=== PATIENT | female | born 1975 | race Caucasian/White ===

== ENCOUNTER 2022-03-20 07:55 | Day surgery (SDC) | payer OTHER ==
[~2022-03-20] VITALS: Ht 167.6 cm; Wt 72.7 kg
[~2022-03-20 07:55] MED LIST: ADVAIR 100-501 EACH INH; ADVAIR HFA INH; ALBUTEROL SULF8.5 GM INH; AVIANE1 EACH PO; BUDESONIDE EC3 MG PO; CELECOXIB200 MG PO; IBUPROFEN800 MG PO; LEVOTHYROXINE25 MCG PO; OXYCODONE HCL5 MG PO; PAIN RELIEF EX500 MG PO; PERCOCET 5-3251 EACH PO; PERCOCET 7.5-31 EACH PO; PRILOSEC OTC20 MG PO; RANITIDINE HCL150 MG PO; SENNA LAX8.6 MG PO; SUDAFED 12 HOU120 MG PO; VIT C-ROSE HIP500 MG PO; ZINC50 M3 PO; ZYRTEC10 MG PO
[2022-03-20] MEDS ORDERED: ONDANSETRON ODT8 MG PO (12:57)
[2022-03-20] MEDS ORDERED: HYDROCODON-ACE1 EA10 PO (12:57)
[2022-03-20] MEDS ORDERED: IBUPROFEN800 MG PO (12:57)
--- NOTE | 2022-03-28 06:20 | OR ---
[facility] [address], [place] [address] Signed DATE OF OPERATION: 03/20/2022 SURGEON: Hemal Velasco DO PREOPERATIVE DIAGNOSES: 1. Abnormal uterine bleeding. 2. Fibroid uterus. POSTOPERATIVE DIAGNOSES: 1. Abnormal uterine bleeding. 2. Fibroid uterus. 3. Apical relaxation. PROCEDURES PERFORMED: 1. Total laparoscopic hysterectomy. 2. Bilateral salpingectomy. 3. Cystoscopy. PILLOWCASE CLEANER: Trina Beaulieu DO ANESTHESIA: General. ESTIMATED BLOOD LOSS: 20 mL. SPECIMEN: Uterus and cervix with bilateral fallopian tubes. DRAINS: Naranjo to gravity. FINDINGS: Normal external genitalia. Apical prolapse noted onset of procedure with normal-appearing cervix. On laparoscopy, normal upper abdomen status post cholecystectomy. In the pelvis, large multifibroid uterus with normal tubes and ovaries bilaterally. Hemostasis at the end of the procedure with some residual apical relaxation but improved from the beginning of the procedure. Normal bladder with bilateral ureteral jets on cystoscopy. Electronically Signed By: HEMAL VELASCO DO (JD) 03/28/22 0620 PATIENT NAME: LILLY LAST OPERATIVE REPORT DATE OF : 73 REPORT #: [id number] PHYSICIAN: HEMAL VELASCO DO (JD) PCP: VIKRAM MEAD PAC REPORT IS CONFIDENTIAL AND NOT TO BE RELEASED WITHOUT AUTHORIZATION [address] [address] Signed COMPLICATIONS: None. INDICATIONS: Ms. Last is a pleasant 47-year-old female with abnormal bleeding and fibroid uterus. She is a patient of Dr. Serrano and was consented for MAC, consented and scheduled for total laparoscopic hysterectomy, bilateral salpingectomy, cystoscopy. Risks, benefits, and alternatives were discussed in detail with the patient. The patient understands and wished to proceed with the procedure. TECHNIQUE: The patient was taken to the operating room, where time-out was performed to confirm correct patient and correct procedure. General anesthesia was adequately established. The patient was prepped and draped in the dorsal lithotomy position with feet in Yellofin stirrups. ICPs were on and running. The patient received Ancef 2 g preoperatively as well as heparin 5000 units preoperatively. Once general anesthetic was established, the patient was prepped and draped. A Naranjo catheter was inserted. The anterior lip of the cervix was grasped with an Allis clamp and significant apical prolapse was noted with the cervix nearly to the introitus. The cervix was gently dilated using Hegar dilators and a VCare uterine manipulator was placed without difficulty. The surgeon's gloves were changed and attention was turned to the abdomen. Just inferior to the umbilicus, skin was infiltrated with 0.25% Marcaine with epinephrine and prior scar was incised approximately 3 cm in length. The fascia was grasped, elevated, and entered sharply using Metzenbaum scissors. Fascial incision was tagged superiorly and inferiorly using 0 Vicryl and the peritoneum was entered bluntly. An S retractor was placed and a Marly operative port was placed without difficulty and pneumoperitoneum easily established. A 10 mm laparoscope was placed and survey of the abdomen and pelvis was performed demonstrating normal upper abdomen status post cholecystectomy with no abnormal findings. Attention was then turned to the pelvis. Large multifibroid uterus with normal-appearing bilateral tubes and ovaries were identified. An 8 mm expanding port was placed in the right lower quadrant under direct visualization without complication. A 5 mm assist port was placed in left lower quadrant under direct visualization without complication. The left fallopian tube was grasped with atraumatic grasper, elevated and dissected, fulgurated, and divided using the LigaSure device. This was carried across the mesosalpinx and across the fallopian tube to the cornu. The tube was delivered and sent to pathology for further evaluation. The process was repeated on the right without complication. The right utero-ovarian ligament was fulgurated and divided. The left utero-ovarian ligament was fulgurated and divided. The left round ligament was then fulgurated and divided with excellent hemostasis. The leaves of the broad ligament were then opened with the anterior leaf open from the midportion of the round ligament to the angle of the vaginal cup Electronically Signed By: HEMAL OJEDA) DO YANDY 03/28/22 0620 PATIENT NAME: LILLY LAST OPERATIVE REPORT DATE OF : 73 REPORT #: [id number] PHYSICIAN: HEMAL VELASCO DO (JD) PCP: VIKRAM MEAD PAC REPORT IS CONFIDENTIAL AND NOT TO BE RELEASED WITHOUT AUTHORIZATION [address] [address] Signed anteriorly. This dissection was carried across the anterior edge of the vaginal cup. The posterior leaf was dissected from the midportion of the round ligament to the uterosacral ligament across the posterior edge of the vaginal cuff. The process was repeated on the right side without difficulty. The left uterine vessels were identified, fulgurated and divided with excellent hemostasis. The right uterine vessels were also identified, fulgurated and divided with excellent hemostasis. Colpotomy was then performed using Sonicision device and the uterus and cervix delivered gently through the vaginal opening. Pneumoperitoneum was reestablished by placing a wet lap sponge into operative glove and into the vagina. The pelvis was irrigated and found to be hemostatic. Colpotomy was then repaired using 0 Stratafix suture with careful attention to incorporate the uterosacral ligaments, providing the vaginal cuff with apical support. Careful attention was also paid to incorporate the vaginal epithelium with each bite. Improved apical support and excellent hemostasis was appreciated at this portion of the procedure. The pelvis was irrigated and again found to be hemostatic. Attention was then turned to cystoscopy. A 70 degree cystoscope was placed in the urethral meatus and advanced under direct visualization into the bladder after removal of the Naranjo catheter. Normal bladder with bilateral ureteral jets appreciated. Bladder was drained. Naranjo catheter was reinserted and attention was turned back to the abdomen. Pneumoperitoneum was desufflated and trocars were removed. Periumbilical fascia was then reapproximated using 0 Vicryl in a running nonlocked manner with incorporating the stay sutures. Skin was then reapproximated using 4-0 Monocryl in a subcuticular stitch. The patient was then taken to PACU in good and stable condition. Sponge, needle, and instrument count was correct x2 at the end the procedure. Dr. Beaulieu was present and participated in all portions of the procedure. DO FREDY Watson/JACKSON /[id number] cc: Fannie López PA-C Electronically Signed By: HEMAL VELASCO DO (JD) 03/28/22 0620 PATIENT NAME: LILLY LAST OPERATIVE REPORT DATE OF : 73 REPORT #: [id number] PHYSICIAN: HEMAL VELASCO DO (JD) PCP: VIKRAM MEAD PAC REPORT IS CONFIDENTIAL AND NOT TO BE RELEASED WITHOUT AUTHORIZATION [address] [place], [place] [address] Signed Copies: FANNIE LÓPEZ PA-C ~ Electronically Signed By: HEMAL VELASCO DO (JD) 03/28/22 0620 PATIENT NAME: LILLY LAST OPERATIVE REPORT DATE OF : 73 REPORT #: [id number] PHYSICIAN: HEMAL VELASCO DO (JD) PCP: VIKRAM MEAD PAC REPORT IS CONFIDENTIAL AND NOT TO BE RELEASED WITHOUT AUTHORIZATION
--- NOTE | 2022-04-01 19:26 | PATH ---
[facility] [address] [place], [place] [address] Signed SPECIMEN(S): A UTERUS, CERVIX AND FALLOPIAN TUBES SPECIMEN SOURCE: A. UTERUS, CERVIX AND FALLOPIAN TUBES CLINICAL HISTORY: Abnormal uterine bleeding, uterine fibroid. FINAL PATHOLOGIC DIAGNOSIS: Uterus, cervix and bilateral fallopian tubes, hysterectomy and bilateral salpingectomy: - Cervix with inflammation and reactive changes; negative for intraepithelial neoplasia and carcinoma. - Proliferative endometrium; negative for hyperplasia, atypia and carcinoma. - Multiple submucosal and intramural leiomyomata. - Bilateral fallopian tubes with paratubal cysts, and no other significant pathologic alteration. NRT:cml:C2NR MICROSCOPIC EXAMINATION: Histologic sections of all submitted blocks are examined by light microscopy. These findings, together with the gross examination, support the pathologic diagnosis. GROSS DESCRIPTION: The specimen, labeled and designated "Tyer, uterus, cervix and bilateral fallopian tubes," is received in formalin and consists of uterus and cervix with undesignated and bilateral fallopian tubes. Uterus measure 7 cm cornu to cornu, 7.3 cm anterior-posterior and 12.2 cm superior to inferior. The serosal surface is pink-proctor, smooth. Posterior wall white, firm subserosal nodule that measure 1.0 cm in diameter. Specimen weight one 258 g. The ectocervix is pink-proctor, focally congested and slightly wrapped around cervical canal opening. It measures 4.6 x 4.3 cm. Sectioning through the cervix reveals a pink-proctor, homogenous tissue. The endometrial cavity measures 3.2 x 1.2 cm. It is lined with pink-red, smooth endometrium. The endometrial cavity shape is disfigured with several subendometrial nodules. Sectioning through the myometrium reveals six white, firm, well-defined nodules included previously described subserosal nodule that range in size from 0.3 to 3.7 PATIENT NAME: LILLY MASSEY PATHOLOGY DATE OF : 73 REPORT #: [id number] PHYSICIAN: ALEKSANDR PATHOLOGY PCP: VIKRAM MEAD PAC REPORT IS CONFIDENTIAL AND NOT TO BE RELEASED WITHOUT AUTHORIZATION [facility] [address] [place], [place] [address] Signed cm in greatest dimension. The nodules are subendometrial and intramural. Sectioning through the nodules reveals white, firm, whorled surface. The myometrium measure 3.2 cm in thickness. The endometrium measures up to 0.1 cm in thickness. Both fallopian tubes show fimbria and violaceous and smooth serosa. The first fallopian tube measures 3.5 cm in length and 0.7 cm in diameter. Sectioning through both fallopian tubes is grossly unremarkable. Second fallopian tube measuring 4 cm in length and 0.7 cm in diameter. Sectioning through both fallopian tubes is grossly unremarkable. [place] sections are submitted: Cassette Summary: (A1) Cervix, sales representative adding machines sections, posterior inked (A2) Endomyometrium, sales representative adding machines sections (A3) One subendometrial nodule, sales representative adding machines sections (A4) One intramural nodule, sales representative adding machines sections (A5) Four nodules, sales representative adding machines sections (A6) First fallopian tube, sales representative adding machines sections (A7) Second fallopian tube, sales representative adding machines sections JS (under the direct supervision of a pathologist) The Gross Description was prepared using a voice recognition system. The report was reviewed for accuracy; however, sound-alike word errors, addition and/or deletions may occur. If there is any question about this report, please contact Client Services. PERFORMING LABORATORY: The technical component was performed by [facility], [address] [place] [id number] (CLIA# [id number]). Professional interpretation was performed by [facility], [facility], [address] [place] [address], [place] [address] (CLIA# [id number]). Diagnostician: Staci Treviño MD Pathologist Electronically Signed 04/01/2022 Copies: ~ PATIENT NAME: LILLY MASSEY PATHOLOGY DATE OF : 73 REPORT #: [id number] PHYSICIAN: ALEKSANDR MCCULLOUGH PCP: VIKRAM MEAD PAC REPORT IS CONFIDENTIAL AND NOT TO BE RELEASED WITHOUT AUTHORIZATION
== END 2022-03-20 16:10 | disposition home or self-care (01) ==
LOC: DS 07:55 → OPS 07:55 → DS 09:30 → OPS 09:30
PROVIDERS: ATTEND Obstetrics & Gynecology
PROC: 0UT94ZZ Resection of Uterus, Percutaneous Endoscopic Approach (ICD-10-PCS; principal; 2022-03-20 09:30)
PROC: 0UT74ZZ Resection of Bilateral Fallopian Tubes, Percutaneous Endoscopic Approach (ICD-10-PCS; 2022-03-20 09:30)
DX: D25.1 Intramural leiomyoma of uterus (principal); D25.0 Submucous leiomyoma of uterus; K52.9 Noninfective gastroenteritis and colitis, unspecified; N93.9 Abnormal uterine and vaginal bleeding, unspecified; E03.9 Hypothyroidism, unspecified; J45.20 Mild intermittent asthma, uncomplicated; Z79.899 Other long term (current) drug therapy; N81.89 Other female genital prolapse
CPT/HCPCS: 00840; J0131; J0690; J1100; J1644; J1885; J2001; J2270; J2405; J2704; J2765; J3010; J7121